=== PATIENT | female | born 1995 | race Caucasian/White ===

== ENCOUNTER 2017-11-26 15:22 | Emergency (ER) | payer OTHER ==
[~2017-11-26] VITALS: Ht 162.6 cm; Wt 47.7 kg
[2017-11-26 15:24] VITALS: BP 115/72; PULSE 73; TEMP 99
[2017-11-26] MEDS ORDERED: MOTRIN 800800 MG/TAB PO (15:26)
[2017-11-26] MEDS ORDERED: MOTRIN 200200 MG/TAB PO (16:01)
== END 2017-11-26 16:22 | disposition home or self-care (01) ==
LOC: COL.ER 15:22
DX: S63.502A Unspecified sprain of left wrist, initial encounter (principal); S63.501A Unspecified sprain of right wrist, initial encounter; V00.131A Fall from skateboard, initial encounter; Y93.21 Activity, ice skating
CPT/HCPCS: Q4021

== ENCOUNTER 2018-09-24 16:06 | Emergency (ER) | payer SELFPAY ==
[~2018-09-24] VITALS: Ht 160 cm; Wt 48.6 kg
[~2018-09-24 16:06] MED LIST: MOTRIN 200200 MG/TAB PO; MOTRIN 800800 MG/TAB PO
[2018-09-24 16:24] VITALS: BP 117/75; TEMP 98.8
[2018-09-24] MEDS ORDERED: NORCO 325 MG-51 TAB PO (18:44)
[2018-09-24 19:10] VITALS: PULSE 103
== END 2018-09-24 19:10 | disposition home or self-care (01) ==
LOC: COL.ER 16:06
DX: S80.01XA Contusion of right knee, initial encounter (principal); Z88.2 Allergy status to sulfonamides; W19.XXXA Unspecified fall, initial encounter; Y92.330 Ice skating rink (indoor) (outdoor) as the place of occurrence of the external cause; Y93.21 Activity, ice skating